=== PATIENT | female | born 2000 | race Two or more races ===

== ENCOUNTER 2022-12-02 00:04 | Observation (INO) | payer MEDICAID ==
[~2022-12-02] VITALS: Ht 182.9 cm; Wt 86.2 kg
== END 2022-12-02 03:36 | disposition home or self-care (01) ==
LOC: LDRP 00:04
PROVIDERS: ADMIT Obstetrics & Gynecology; ATTEND Obstetrics & Gynecology
DX: O26.893 Other specified pregnancy related conditions, third trimester (principal); O9A.213 Injury, poisoning and certain other consequences of external causes complicating pregnancy, third trimester; Z3A.35 35 weeks gestation of pregnancy; W18.30XA Fall on same level, unspecified, initial encounter; Y93.89 Activity, other specified; Y92.89 Other specified places as the place of occurrence of the external cause; Y99.8 Other external cause status
CPT/HCPCS: 59025; 76805; 81002; 94762; G0378